=== PATIENT | female | born 1965 | race Caucasian/White ===

== ENCOUNTER 2016-12-28 19:18 | Emergency (ER) | payer BC, MEDICAID ==
[~2016-12-28] VITALS: Ht 162.6 cm; Wt 107.5 kg
[~2016-12-28 19:18] MED LIST: ACET325T21 PO; ALBU2.5V NPPB; ALPR0.254 PO; AMIO200T42 PO; ASPI-621 PO; ATOR40TA78 PO; ATOR80TA75 PO; FLUT1AER INH; FURO20TA3 PO; GABA-827 PO; GABA800T2 PO; HYDR-3307 PO; IPRA4AER INH; LISI40TA PO; METO25TA35 PO; MORP30CA15 PO; MORP30TA81 PO; NICO1PAT4 TD; NITR0.4T8 SL; OXYB5TAB7 PO; OXYC5TAB3 PO; PENI500T PO; POTA10TA5 PO; PRAS10TA4 PO; WARF4TAB7 PO; WARF5TAB PO
[2016-12-28] MEDS ORDERED: SODIUM CHLORIDE 0.9% 1,000 ML IV ONE (19:28)
[2016-12-28] MEDS ORDERED: MORPHINE SULFATE 4 MG/ML, 1ML IVPush PRN (19:30)
[2016-12-28] MEDS ORDERED: ONDANSETRON 2MG/ML, 2ML IVPush ONE (19:30)
[2016-12-28] MEDS ORDERED: ASPIRIN 81 MG TABLET CHEW PO ONE (19:30)
[2016-12-28] MEDS ORDERED: ASPIRIN 81 MG TABLET CHEW ONE (19:42)
[2016-12-28] MEDS ORDERED: MORPHINE SULFATE 4 MG/ML, 1ML ONE ×2 (19:42→21:15)
[2016-12-28] MEDS ORDERED: ONDANSETRON 2MG/ML, 2ML ONE (19:42)
[2016-12-28 20:02] LABS: BLOOD UREA NITROGEN 17 mg/dL (7-18)
[2016-12-28 20:19] LABS: IS PT STATUS REG ER OR PRE ER? YES
[2016-12-28] MEDS ORDERED: KETOROLAC 30 MG/1 ML ONE ×2 (20:53→21:35)
[2016-12-28] MEDS ORDERED: HYDROmorphone 1 MG/ML, 1ML ONE (21:27)
[2016-12-28] MEDS ORDERED: HYDROmorphone 2 MG/ML, 1ML IVPush PRN (21:30)
[2016-12-28] MEDS: KETOROLAC 30 MG/1 ML IVPush ONE ×2 (21:31→21:40)
[2016-12-28 21:32] VITALS: BP 120/65
[2016-12-28] MEDS ORDERED: HYDROmorphone 1 MG/ML, 1ML IVPush PRN (21:36)
== END 2016-12-28 23:06 | disposition home or self-care (01) ==
LOC: ED 22:30
DX: M75.32 Calcific tendinitis of left shoulder (principal); M25.512 Pain in left shoulder; I25.2 Old myocardial infarction; I48.91 Unspecified atrial fibrillation; I11.9 Hypertensive heart disease without heart failure; J44.9 Chronic obstructive pulmonary disease, unspecified
CPT/HCPCS: 36415; 71010; 73030; 80048; 82040; 83880; 84484; 85025; 93005; 96361; 96374; 96375; 99285; J1170; J1885; J2405; J7030; 46050

== ENCOUNTER 2017-01-31 14:55 | Emergency (ER) | payer BC, MEDICAID ==
[~2017-01-31] VITALS: Ht 162.6 cm; Wt 105.1 kg
[2017-01-31 15:01] VITALS: BP 134/79
== END 2017-01-31 17:00 | disposition home or self-care (01) ==
LOC: ED 16:30
DX: L84 Corns and callosities (principal); I48.91 Unspecified atrial fibrillation; I10 Essential (primary) hypertension; J44.9 Chronic obstructive pulmonary disease, unspecified; Z95.2 Presence of prosthetic heart valve
CPT/HCPCS: 99284

== ENCOUNTER 2018-09-18 07:35 | Emergency (ER) | payer BC, OTHER ==
[~2018-09-18] VITALS: Ht 162.6 cm; Wt 84.7 kg
[~2018-09-18 07:35] MED LIST changes: -ASPI-621 PO; +ASPI81TA45 PO; +ATOR-2 PO; -ATOR80TA75 PO; -GABA800T2 PO; +GABA800T5 PO; +NICO-486 TD; -NICO1PAT4 TD; +NITR0.4T28 SL; -NITR0.4T8 SL; +WARF4TAB65 PO; -WARF4TAB7 PO
--- NOTE | 2018-09-18 07:56 | NUR ---
PATIENT IS A SMOKER ([employer]F [employer]ACK DAY) WHO ARRIVES TO ER WITH NEW ONSET SOB THAT BEGAN WITH EXERTION THIS MORNING WHILE WALKING DOG. SHE HAS A CARDIAC HX OF AORTIC VALVE REPLACEMENT SHE STATES EITHER IN 2016 OR 2017, UNSURE. SHE STATES NO CHEST PAIN. PLACED ON FULL MONITOR AND NSR RATE 75, OXYGEN 95% ON ROOM AIR WITH SOME WHEEZES NOTED, RR 14, BP 128/90. WILL KEEP HER ON MONITOR. ARRIVES WITH MOM. STATES SHE HAD HYPERTENSION PRE HEART SURGERY BUT SINCE SHE HAS NOT HAD HTN. SHE IS PRE DIABETIC THEN LOST WEIGHT AND IT RESOLVED WELL HER HIGH CHOLESTEROL. SHE STATES SHE HAS BEEN DIAGNOSED WITH COPD. STATES PRIOR TO HER 70 LB WEIGHT LOSS SHE WAS ON HOME OXYGEN BUT SINCE WEIGHT LOSS (SLEEVE GASTRECTOMY) SHE HAS NOT NEEDED OXYGEN. PATIENT IN BED, RAILS UP.
[2018-09-18] MEDS ORDERED: ASPIRIN 81 MG TABLET CHEW PO ONE (08:00)
[2018-09-18] MEDS ORDERED: SODIUM CHLORIDE FLUSH 10ML SYR IVF ONE (08:00)
[2018-09-18 08:25] LABS: BASOPHILS # (AUTO) 0.02 x10^3/uL (0-0.1); BASOPHILS % (AUTO) 0 % (0-1); EOSINOPHILS # (AUTO) 0.11 x10^3/uL (0-0.4); EOSINOPHILS % (AUTO) 2 % (1-7); LYMPHOCYTES # (AUTO) 1.62 x10^3/uL (1-3.4); LYMPHOCYTES % (AUTO) 23 % (22-44); MD NO; MEAN CORPUSCULAR HEMOGLOBIN 29.1 pg (27.0-34.8); MEAN CORPUSCULAR HGB CONC 33.1 g/dL (32.4-35.8); MEAN CORPUSCULAR VOLUME 88.1 fL (80-100); MEAN PLATELET VOLUME 8.1 fL (7.4-10.4); MONOCYTES # (AUTO) 0.45 x10^3/uL (0.2-0.8); MONOCYTES % (AUTO) 7 % (2-9); NEUTROPHILS # (AUTO) 4.73 x10^3/uL (1.8-6.8); NEUTROPHILS % (AUTO) 68 % (42-75); PLATELET COUNT 228 x10^3/uL (130-400); RED BLOOD COUNT 4.99 x10^6/uL (3.82-5.3); RED CELL DISTRIBUTION WIDTH 13.7 % (9.6-15.2)
[2018-09-18] MEDS ORDERED: ASPIRIN 81 MG TABLET CHEW ONE (08:32)
[2018-09-18 08:40] LABS: ALBUMIN 3.6 g/dL (3.4-5.0); ANION GAP 5 mmol/L (5-15); CALCIUM 8.4 mg/dL (8.5-10.1); CHLORIDE 113 mmol/L (98-107); CREATININE 0.72 mg/dL (0.55-1.02)
[2018-09-18 08:44] LABS: TROPONIN I < 0.015 ng/mL (0.000-0.045)
[2018-09-18 10:16] VITALS: BP 115/78
--- NOTE | 2018-09-18 10:17 | NUR ---
discharge instructions reviewed with patient. shows understanding. left with mom driving and states feeels better
== END 2018-09-18 10:34 | disposition home or self-care (01) ==
LOC: ED 08:49
DX: R06.00 Dyspnea, unspecified (principal); R07.89 Other chest pain; R53.1 Weakness; I10 Essential (primary) hypertension; I25.2 Old myocardial infarction; F17.210 Nicotine dependence, cigarettes, uncomplicated; Z95.4 Presence of other heart-valve replacement
CPT/HCPCS: 36415; 71045; 80048; 82040; 83880; 84484; 85025; 93005; 99284